=== PATIENT | male | born 1980 | race Caucasian/White ===

== ENCOUNTER 2017-08-03 14:09 | Emergency (ER) | payer SELFPAY ==
[~2017-08-03] VITALS: Ht 180.3 cm; Wt 103.4 kg
[~2017-08-03 14:09] MED LIST: ACETAMINOPHEN-1 EAC1 PO; AUGMENTIN 875-1 EACH PO; BUSPIRONE HCL5 MG PO; CLONAZEPAM2 MG PO; CLONIDINE HCL0.1 MG PO; FLUOXETINE HCL20 M1 PO; NORCO 7.5-3251 EACH PO; OXYCODONE HCL5 MG PO; PRILOSEC OTC20 MG PO
== END 2017-08-03 14:32 | disposition home or self-care (01) ==
LOC: ED 14:09
DX: Z00.8 Encounter for other general examination (principal)

== ENCOUNTER 2020-05-05 13:11 | Emergency (ER) | payer SELFPAY ==
[~2020-05-05] VITALS: Ht 180.3 cm; Wt 103.4 kg
[2020-05-05] MEDS ORDERED: CLONAZEPAM2 MG GT (13:55)
[2020-05-05] MEDS ORDERED: SERTRALINE HCL50 MG PO (13:56)
[2020-05-05] MEDS ORDERED: CYCLOBENZAPRINE10 MG PO (13:57)
== END 2020-05-05 14:29 | disposition home or self-care (01) ==
LOC: ED 13:11
DX: B07.9 Viral wart, unspecified (principal); F32.9 Major depressive disorder, single episode, unspecified; F41.9 Anxiety disorder, unspecified; F17.200 Nicotine dependence, unspecified, uncomplicated; Z79.899 Other long term (current) drug therapy
CPT/HCPCS: 99283

== ENCOUNTER 2023-11-13 16:13 | Emergency (ER) | payer OTHER ==
[~2023-11-13] VITALS: Ht 180.3 cm; Wt 136.8 kg
[~2023-11-13 16:13] MED LIST changes: +CEPHALEXIN500 M1 PO; +CLONAZEPAM2 MG GT; +CYCLOBENZAPRINE10 MG PO; +DOXEPIN HCL25 MG PO; +HYDROCODON-ACE1 EA10 PO; +OMEPRAZOLE40 MG PO; +ONDANSETRON ODT8 MG PO; +QUETIAPINE FUMA50 M1 PO; +SEROQUEL100 MG PO; +SERTRALINE HCL50 MG PO
--- OUTSIDE RECORDS SUMMARY | 2023-11-13 16:17 | XMS ---
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 E.DStefano VISIT COUNT (12 MO.) 3 CORINNA Lomeli TOTAL 3 NOTE: Visits indicate total known visits. ED/UCC VISIT TRACKING (12 MO.) 11/13/2023 16:14 [facility] TYPE: Emergency COMPLAINT: - ABDOMINAL PAIN 08/11/2023 16:31 [facility] [place] TYPE: Emergency COMPLAINT: - MEDICAL CLEARANCE DIAGNOSES: - Anxiety disorder, unspecified - Major depressive disorder, single episode, severe without psychotic features - Other long term care pharmacist (current) drug therapy - Suicidal ideations 08/05/2023 16:33 [facility] [place] TYPE: Emergency COMPLAINT: - CHEST PAIN, HEADACHE, FATIGUE, NO SLEEP/EAT DIAGNOSES: - Anxiety disorder, unspecified - Depression, unspecified - Nicotine dependence, unspecified, uncomplicated - Other long term care pharmacist (current) drug therapy - Suicidal ideations INPATIENT VISIT TRACKING (12 MO.) 08/12/2023 19:28 [facility] [place] TYPE: Psychiatric Services DIAGNOSES: 0. Major depressive disorder, recurrent severe without psychotic features 1. Major depressive disorder, recurrent severe without psychotic features 2. Anxiety disorder, unspecified 2. Benign prostatic hyperplasia without lower urinary tract symptoms 2. Gastro-esophageal reflux disease without esophagitis 2. Hypothyroidism, unspecified 2. Nicotine dependence, chewing tobacco, uncomplicated 2. Personal history of suicidal behavior 2. Suicidal ideations 2. Unspecified osteoarthritis, unspecified site [email or web address]
[2023-11-13 16:38] LABS: BASOPHILS 0.5 % (0-2); EOSINOPHILS 2.6 % (0-6); HEMATOCRIT 43.3 % (35.0-50.0); HEMOGLOBIN 14.9 g/dL (12.0-18.0); LYMPHOCYTES 23.6 % (24-44); MCH 28.4 (27-36); MCHC 34.3 g/dl (30-36); MCV 82.6 fl (81-99); MONOCYTES 3.8 % (0-12); NEUTROPHILS 69.5 % (39-80); PLATELET COUNT 212 K/uL (140-440); RBC 5.25 M/ul (4.3-5.7); RDW 13.9 (10.5-15.0)
[2023-11-13] MEDS ORDERED: ondansetron HCL 4 MG/2 ML VIAL IV ONE (16:45)
[2023-11-13] MEDS ORDERED: SODIUM CHLORIDE 0.9% 1,000 ML IV ONE (16:45)
[2023-11-13] MEDS ORDERED: CLONIDINE HCL0.1 MG PO (16:48)
[2023-11-13] MEDS ORDERED: LAMOTRIGINE100 MG (16:48)
[2023-11-13] MEDS ORDERED: DICLOFENAC POTA50 MG PO (16:50)
[2023-11-13] MEDS ORDERED: FLOMAX0.4 MG PO (16:51)
[2023-11-13] MEDS ORDERED: OMEPRAZOLE20 MG PO (16:51)
[2023-11-13 16:56] LABS: ALBUMIN 3.9 g/dL (3.4-5.0); ALBUMIN/GLOBULIN RATIO 1.22 (1.1-2.4); ANION GAP 14.9 (7-21); BILIRUBIN, TOTAL 0.5 ng/dL (0.2-1.0); BUN/CREATININE RATIO 9.3 (6.0-28.6); CALCIUM 8.4 mg/dL (8.5-10.1); CREATININE, SERUM 1.29 mg/dL (0.70-1.30); POTASSIUM 3.9 mmol/L (3.5-5.1); PROTEIN, TOTAL 7.1 g/dL (6.4-8.2)
[2023-11-13 18:01] LABS: BILIRUBIN, URINE NEGATIVE (negative); BLOOD/HGB, URINE NEGATIVE (Negative); KETONE, URINE NEGATIVE (Negative); LEUK ESTERASE, URINE NEGATIVE (negative); NITRITE, URINE NEGATIVE (negative)
[2023-11-13 18:46] VITALS: BP 142/83
== END 2023-11-13 18:43 | disposition home or self-care (01) ==
LOC: ED 16:13
PROVIDERS: Emergency Medicine
DX: R10.12 Left upper quadrant pain (principal); R19.7 Diarrhea, unspecified; F17.200 Nicotine dependence, unspecified, uncomplicated; Z79.899 Other long term (current) drug therapy
CPT/HCPCS: 36415; 80053; 81003; 83690; 85025; 96361; 96374; 99284-25; J2405; J7030